=== PATIENT | male | born 1955 | race Caucasian/White ===

== ENCOUNTER → 2020-10-31 11:25 | Outpatient (REF) | payer MEDICARE, SELFPAY | LOC: ANHLAB 11:25 | PROVIDERS: PCP Internal Medicine; Visit Provider Nurse Practitioner | DX: C44.319 Basal cell carcinoma of skin of other parts of face (principal) | CPT/HCPCS: 88305 ==

== ENCOUNTER → 2020-12-11 08:18 | Outpatient (REF) | payer MEDICARE, SELFPAY | LOC: ANHLAB 08:18 | PROVIDERS: PCP Internal Medicine; Visit Provider Nurse Practitioner | DX: D22.39 Melanocytic nevi of other parts of face (principal) | CPT/HCPCS: 88305 ==

== ENCOUNTER → 2021-01-08 08:21 | Outpatient (REF) | payer MEDICARE, SELFPAY | LOC: ANHLAB 08:21 | PROVIDERS: PCP Internal Medicine; Visit Provider Nurse Practitioner | DX: C44.319 Basal cell carcinoma of skin of other parts of face (principal) | CPT/HCPCS: 88305; 88331 ==

== ENCOUNTER 2024-06-30 00:13 | Day surgery (SDC) | payer MEDICARE, SELFPAY ==
[2024-06-17 10:56] VITALS: BMI 37.0
--- NOTE | 2024-06-17 11:15 | PC.NURSE ---
called pt re: pat call for upcoming colonoscopy on june 30, 2024. reinforced pt instructions several times, pt states he understood but asked same questions numerous times. pt states he did have the instruction letter from the office. strongly encouraged pt to look at this and take letter with him when he purchases prep ingredients. pts not available to speak with, pt states she was working. encouraged pt to have go over letter and instructions with him and to call back with any questions. voiced understanding.
--- OUTSIDE RECORDS SUMMARY | 2024-06-30 00:17 | XMS_ITS | Data Portability ---
Author Organization RAMÓN GABBILisa Martines Address [address] [place] [address] Assessment No assessment recorded. Plan of Treatment Reminders Order Date Submit Date Provider Last Modified By Organization Details Last Modified Time Details Appointments ANY 15 2024 03:15P iJm RUSS PA-C Not available Not available Not available Lab CMP, serum or plasma 2024 025 EBONY LABLYNDON, [address] [place] [address], [facility] [address], [place], [address], 03/31/2024 10:13:59 albumin/c reatinine , mass ratio, urine 2024 025 EBONY LABLYNDON, [address] [place] [address], [address], [place], [address], 03/31/2024 10:13:56 CBC w/ auto diff 2024 025 EBONY LABLYNDON, [address] [place] [address], [facility] [address], [place], [address], 03/31/2024 10:14:03 lipid panel, serum 2024 025 EBONY LABLYNDON, [address] [place] [address], [facility] [address], [place], [address], 03/31/2024 10:13:57 TSH, ultra-sen sitive, serum 2024 025 EBONY LABLYNDON, [address] [place] [address], [facility] [address], [place], [address], 03/31/2024 10:14:00 HbA1c (hemoglob in A1c), blood 2024 025 EB[facility]Y [facility], [address], [address], [place], [address], 03/31/2024 10:14:02 Referral gastroent erologist referral 2024 025 EBONY Modi MD, [address] [facility] [address], [place], [address], 04/13/2024 04:17:54 plastic surgeon referral - Please call patient for appointme nt thanks! 2021 022 EBONY Harman MD, [address] [facility] [address], [place], [address], 05/09/2022 14:13:58 urologist referral - Please call patient for appointme nt, thanks! 2021 022 charlotte Martins MD, [address] [facility], [place], [address], 05/23/2022 08:26:24 Procedures None recorded. Surgeries None recorded. Imaging None recorded. Medication Orders amlodipin e 10 mg tablet 2024 025 [email or web address] [facility], [address] [place], [address], 03/30/2024 10:40:02 clonidine HCl 0.1 mg tablet 2024 025 [email or web address] [facility], [address] [place], [address], 03/30/2024 10:40:02 amlodipin e 10 mg tablet 2022 023 EBONY [facility], [address] [place], [address], 02/04/2023 18:02:38 clonidine HCl 0.1 mg tablet 2022 023 EBONY [facility], [address] [place] [address], [address], 02/04/2023 18:02:38 amlodipin e 10 mg tablet 2022 023 EBONY [facility], [address] [place] [address], [address], 07/05/2022 16:44:40 clonidine HCl 0.1 mg tablet 2022 023 EBONY [facility], [address] [place] [address], [address], 07/05/2022 16:44:39 amlodipin e 10 mg tablet 2021 022 EBONY [facility], [address] [place] [address], [address], 01/02/2022 17:02:19 clonidine HCl 0.1 mg tablet 2021 022 EBONY [facility], [address] [place] [address], [address], 01/02/2022 17:02:19 tamsulosi n 0.4 mg capsule 2021 022 [email or web address] [facility], [address] [place] [address], [address], 01/02/2022 16:05:02 Patient TargetsNo targets recorded. Patient Instructions Encounter Date Encounter Id Patient Instructions Last Modified By Organization Details Last Modified Time 09/04/2021 [id number] prostate biopsy: about this test [facility] Not available 09/04/2021 18:44:47 When You Want to Lose Weight: Care Instructions [facility] Not available 09/04/2021 18:44:47 learning about high blood pressure [email or web address] Not available 09/04/2021 18:44:47 benign prostatic hyperplasia: care instructions sieh Not available 09/04/2021 18:44:47 01/02/2022 [id number] A healthy lifestyle: care instructions sieh Not available 01/02/2022 17:13:10 body mass index: care instructions sieh Not available 01/02/2022 17:02:14 learning about healthy weight si Not available 01/02/2022 17:02:14 07/05/2022 [id number] A healthy lifestyle: care instructions si Not available 07/05/2022 16:44:37 learning about high blood pressure [facility] Not available 07/05/2022 16:44:37 02/04/2023 [id number] A healthy lifestyle: care instructions [facility] Not available 02/04/2023 18:02:36 03/30/2024 [id number] A healthy lifestyle: care instructions [email or web address] Not available 03/30/2024 10:39:49 learning about high blood pressure [email or web address] Not available 03/30/2024 10:39:49 Reason for Referral Urologist Referral for Prost ate specific antigen above reference range Please call patient for appointment, thanks! Referring Physician: Chris Corral, Internal Medicine, Encounter Date: 09/04/2021 Plastic Surgeon Referral for History of malignant neoplasm of skin Please call patient for appointment thanks! Referring Physician: Chris Corral, Internal Medicine, Encounter Date: 01/02/2022 Operator Control Room Referral for Screening for malignant neoplasm of colon colonscopy Referring Physician: Fransico Russ, Family Medicine, Encounter Date: 03/30/2024 Results Created Date Observation Date Name Description Value Unit Range Abnormal Flag Note LastModifiedBy Organization Detail LastModifiedTime 08/22/19 22 08/22/2021 PROST ATE-S PECIF IC AG prostate specific Ag 11.4 NG/mL 0.0-4. 0 above high normal Tete ECLIA metho dolog y. Accor ding to the Ameri can [employer]o g[employer] iatio n, Serum PSA shoul d decre ase and remai n at undet ectab le level s after radic al prost atect debra. The AUA defin es bioch emica l recur rence as an initi al PSA value 0.2 ng/mL or great er follo wed by a subse quent confi rmato ry PSA value 0.2 ng/mL or great er. Value s obtai nallely with diffe rent assay metho ds or kits canno t be used inter stein eably . Resul ts canno t be inter prete d as absol chul[place]ick evide nce of the prese nce or absen ce [facility]. Not Available [facility] ([facility]) [address] [place], [address], 08/22/2021 08:15:19 03/30/19 25 03/31/2024 ALBUM IN/CR EATIN INE RATIO ,URIN E creatinine, urine 59.1 mg/dL notest ab. Not Available [facility] ([facility]) [address] [place], [address], 03/31/2024 10:13:56 03/30/19 25 03/31/2024 ALBUM IN/CR EATIN INE RATIO ,URIN E albumin, urine 19.2 ug/mL notest ab. Not Available [facility] ([facility]) [address] [place], [address], 03/31/2024 10:13:56 03/30/19 25 03/31/2024 ALBUM IN/CR EATIN INE RATIO ,URIN E alb/creat ratio 32 mg/g_ creat 0-29 above high normal Nicolasa l: 0 - 29 Moder ately incre ased: 30 - 300 Sever mari incre ased: >300 Not Available [facility] ([facility]) [address] [place], [address], 03/31/2024 10:13:56 03/30/19 25 03/31/2024 LIPID PANEL cholesterol, total 144 mg/dL 100-19 9 Not Available [facility] ([facility]) [address] [place], [address], 03/31/2024 10:13:57 03/30/19 25 03/31/2024 LIPID PANEL triglyceride s 100 mg/dL 0-149 Not Available [facility] ([facility]) [address] [place], [address], 03/31/2024 10:13:57 03/30/19 25 03/31/2024 LIPID PANEL HDL cholesterol 49 mg/dL >39 Not Available [facility] ([facility]) [address] [place], [address], 03/31/2024 10:13:57 03/30/19 25 03/31/2024 LIPID PANEL VLDL cholesterol jason 19 mg/dL 5-40 Not Available [facility] ([facility]) [address] [place], [address], 03/31/2024 10:13:57 03/30/19 25 03/31/2024 LIPID PANEL LDL chol calc ([facility]) 76 mg/dL 0-99 Not Available [facility] ([facility]) [address] [place], [address], 03/31/2024 10:13:57 03/30/19 25 03/31/2024 COMP. METAB OLIC PANEL (14) glucose 98 mg/dL 70-99 Not Available [facility] ([facility]) [address] [place], [address], 03/31/2024 10:13:59 03/30/19 25 03/31/2024 COMP. METAB OLIC PANEL (14) BUN 14 mg/dL 8-27 Not Available [facility] ([facility]) [address] [place], [address], 03/31/2024 10:13:59 03/30/19 25 03/31/2024 COMP. METAB OLIC PANEL (14) creatinine 0.84 mg/dL 0.76-1 .27 Not Available [facility] ([facility]) [address] [facility], [place], [address], 03/31/2024 10:13:59 03/30/19 25 03/31/2024 COMP. METAB OLIC PANEL (14) eGFR 95 mL/mi n/1.7 3 >59 Not Available [facility] ([facility]) [address] [facility], [place], [address], 03/31/2024 10:13:59 03/30/19 25 03/31/2024 COMP. METAB OLIC PANEL (14) BUN/creatini ne ratio 17 10-24 Not Available [facility] ([facility]) [address] [facility], [place], [address], 03/31/2024 10:13:59 03/30/19 25 03/31/2024 COMP. METAB OLIC PANEL (14) sodium 143 mmol/ L 134-14 4 Not Available [facility] ([facility]) [address] [facility], [place], [address], 03/31/2024 10:13:59 03/30/19 25 03/31/2024 COMP. METAB OLIC PANEL (14) potassium 4.0 mmol/ L 3.5-5. 2 Not Available [facility] ([facility]) [address] [facility], [place], [address], 03/31/2024 10:13:59 03/30/19 25 03/31/2024 COMP. METAB OLIC PANEL (14) chloride 105 mmol/ L 96-106 Not Available [facility] ([facility]) [address] [facility], [place], [address], 03/31/2024 10:13:59 03/30/19 25 03/31/2024 COMP. METAB OLIC PANEL (14) carbon dioxide, total 22 mmol/ L 20-29 Not Available [facility] ([facility]) [address] [facility], [place], [address], 03/31/2024 10:13:59 03/30/19 25 03/31/2024 COMP. METAB OLIC PANEL (14) calcium 9.5 mg/dL 8.6-10 .2 Not Available [facility] ([facility]) [address] [facility], [place], [address], 03/31/2024 10:13:59 03/30/19 25 03/31/2024 COMP. METAB OLIC PANEL (14) protein, total 6.9 g/dL 6.0-8. 5 Not Available [facility] ([facility]) [address] [facility], [place], [address], 03/31/2024 10:13:59 03/30/19 25 03/31/2024 COMP. METAB OLIC PANEL (14) albumin 4.4 g/dL 3.9-4. 9 Not Available [facility] ([facility]) [address] [place], [address], 03/31/2024 10:13:59 03/30/19 25 03/31/2024 COMP. METAB OLIC PANEL (14) globulin, total 2.5 g/dL 1.5-4. 5 Not Available [facility] ([facility]) [address] [place], [address], 03/31/2024 10:13:59 03/30/19 25 03/31/2024 COMP. METAB OLIC PANEL (14) bilirubin, total 0.5 mg/dL 0.0-1. 2 Not Available [facility] ([facility]) [address] [place], [address], 03/31/2024 10:13:59 03/30/19 25 03/31/2024 COMP. METAB OLIC PANEL (14) alkaline phosphatase 72 IU/L 44-121 Not Available [facility] ([facility]) [address] [facility] [place], [address], 03/31/2024 10:13:59 03/30/19 25 03/31/2024 COMP. METAB OLIC PANEL (14) AST (SGOT) 21 IU/L 0-40 Not Available [facility] ([facility]) [address] [place], [address], 03/31/2024 10:13:59 03/30/19 25 03/31/2024 COMP. METAB OLIC PANEL (14) ALT (SGPT) 29 IU/L 0-44 Not Available [facility] ([facility]) [address] [place], [address], 03/31/2024 10:13:59 03/30/19 25 03/31/2024 TSH RFX ON ABNOR MAL TO FREE T4 TSH 1.950 uIU/m L 0.450- 4.500 Not Available [facility] ([facility]) [address] [place], [address], 03/31/2024 10:14:00 03/30/19 25 03/31/2024 HEMOG LOBIN A1C hemoglobin A1C 6.9 % 4.8-5. 6 above high normal Predi abete s: 5.7 - 6.4 Diabe anthony: >6.4 Glyce luis contr ol for adult s with diabe anthony: <7.0 Not Available [facility] ([facility]) [address] [place], [address], 03/31/2024 10:14:02 03/30/19 25 03/30/2024 CBC WITH DIFFE RENTI AL/PL ATELE T WBC 9.9 x10e3 /uL 3.4-10 .8 Not Available [facility] ([facility]) [address] [place], [address], 03/31/2024 10:14:03 03/30/19 25 03/30/2024 CBC WITH DIFFE RENTI AL/PL ATELE T RBC 5.53 x10e6 /uL 4.14-5 .80 Not Available [facility] ([facility]) [address] [place], [address], 03/31/2024 10:14:03 03/30/19 25 03/30/2024 CBC WITH DIFFE RENTI AL/PL ATELE T hemoglobin 15.2 g/dL 13.0-1 7.7 Not Available [facility] ([facility]) [address] [place], [address], 03/31/2024 10:14:03 03/30/19 25 03/30/2024 CBC WITH DIFFE RENTI AL/PL ATELE T hematocrit 46.1 % 37.5-5 1.0 Not Available [facility] ([facility]) [address] [place], [address], 03/31/2024 10:14:03 03/30/19 25 03/30/2024 CBC WITH DIFFE RENTI AL/PL ATELE T MCV 83 fL 79-97 Not Available [facility] ([facility]) [address] [place], [address], 03/31/2024 10:14:03 03/30/19 25 03/30/2024 CBC WITH DIFFE RENTI AL/PL ATELE T MCH 27.5 pg 26.6-3 3.0 Not Available [facility] ([facility]) [address] [place], [address], 03/31/2024 10:14:03 03/30/19 25 03/30/2024 CBC WITH DIFFE RENTI AL/PL ATELE T MCHC 33.0 g/dL 31.5-3 5.7 Not Available [facility] ([facility]) [address] [place], [address], 03/31/2024 10:14:03 03/30/19 25 03/30/2024 CBC WITH DIFFE RENTI AL/PL ATELE T RDW 14.7 % 11.6-1 5.4 Not Available [facility] ([facility]) [address] [place], [address], 03/31/2024 10:14:03 03/30/19 25 03/30/2024 CBC WITH DIFFE RENTI AL/PL ATELE T platelets 265 x10e3 /uL 150-45 0 Not Available [facility] ([facility]) [address] [facility], [place], [address], 03/31/2024 10:14:03 03/30/19 25 03/30/2024 CBC WITH DIFFE RENTI AL/PL ATELE T neutrophils 64 % notest ab. Not Available [facility] ([facility]) [address] [facility], [place], [address], 03/31/2024 10:14:03 03/30/19 25 03/30/2024 CBC WITH DIFFE RENTI AL/PL ATELE T lymphs 19 % notest ab. Not Available [facility] ([facility]) [address] [facility], [place], [address], 03/31/2024 10:14:03 03/30/19 25 03/30/2024 CBC WITH DIFFE RENTI AL/PL ATELE T monocytes 10 % notest ab. Not Available [facility] ([facility]) [address] [facility], [place], [address], 03/31/2024 10:14:03 03/30/19 25 03/30/2024 CBC WITH DIFFE RENTI AL/PL ATELE T eos 5 % notest ab. Not Available [facility] ([facility]) [address] [facility], [place], [address], 03/31/2024 10:14:03 03/30/19 25 03/30/2024 CBC WITH DIFFE RENTI AL/PL ATELE T basos 1 % notest ab. Not Available [facility] ([facility]) [address] [facility], [place], [address], 03/31/2024 10:14:03 03/30/19 25 03/30/2024 CBC WITH DIFFE RENTI AL/PL ATELE T neutrophils (absolute) 6.5 x10e3 /uL 1.4-7. 0 Not Available [facility] ([facility]) [address] [place], [address], 03/31/2024 10:14:03 03/30/19 25 03/30/2024 CBC WITH DIFFE RENTI AL/PL ATELE T lymphs (absolute) 1.8 x10e3 /uL 0.7-3. 1 Not Available [facility] ([facility]) [address] [place], [address], 03/31/2024 10:14:03 03/30/19 25 03/30/2024 CBC WITH DIFFE RENTI AL/PL ATELE T monocytes(ab solute) 0.9 x10e3 /uL 0.1-0. 9 Not Available [facility] ([facility]) [address] [place], [address], 03/31/2024 10:14:03 03/30/19 25 03/30/2024 CBC WITH DIFFE RENTI AL/PL ATELE T eos (absolute) 0.5 x10e3 /uL 0.0-0. 4 above high normal Not Available [facility] ([facility]) [address] [place], [address], 03/31/2024 10:14:03 03/30/19 25 03/30/2024 CBC WITH DIFFE RENTI AL/PL ATELE T baso (absolute) 0.1 x10e3 /uL 0.0-0. 2 Not Available [facility] ([facility]) [address] [place], [address], 03/31/2024 10:14:03 03/30/19 25 03/30/2024 CBC WITH DIFFE RENTI AL/PL ATELE T immature granulocytes 1 % notest ab. Not Available [facility] ([facility]) [address] [place], [address], 03/31/2024 10:14:03 03/30/19 25 03/30/2024 CBC WITH DIFFE ISHATI AL/PL ATELE T immature grans (abs) 0.1 x10e3 /uL 0.0-0. 1 Not Available [facility] ([facility]) [address] [facility], [place], [address], 03/31/2024 10:14:03 Result Notes None recorded. Problems Name Problem SNOMED Code Status Onset Date Resolution Date Notes Provider Name and Address Organization Details Recorded Time Body mass index 30+ - obesity 259070863 Active 2017 Not Available [facility] 3 14:46:02 Pain in left foot 0652442092381 07 Active 2021 Not Available [facility] 3 14:46:02 Essential hypertensi on 17141895 Active FRANSICO RUSS PA-C Attn: Accounting ,[address] [facility], [place], [address] , [facility] 5 10:16:24 Obesity 216049746 Active Not Available [facility] 3 14:46:02 Seasonal allergy 947628691 Active Not Available [facility] 3 14:46:02 Problem Notes None recorded. Medical Equipment None Reported. Allergies No known drug allergies Medications Name Sig Start Date Stop Date Status Note LastModified by Organization Details LastModified Time Prescriptio n - Change 01/24 completed Not Available Not Available Not Available clonidine HCl 0.1 mg tablet TAKE 1 TABLET BY MOUTH TWICE A DAY active Not Available Not Available No t Available clindamycin HCl 300 mg capsule TAKE 2 CAPSULES BY MOUTH NOW THEN TAKE 1 CAPSULE EVERY 6 HOURS UNTIL FINISHED 02/04 completed Not Available Not Available Not Available naltrexone 50 mg tablet Take 1 tablet every day by oral route as directed for 30 days. 12/07 completed Not Available Not Available Not Available lisinopril 20 mg tablet TAKE 2 TABLETS BY MOUTH EVERY DAY 02/14 completed Not Available Not Available Not Available Wellbutrin SR 150 mg tablet, 12 hr sustained-r elease Take 1 tablet twice a day by oral route as directed for 30 days. 12/07 completed Not Available Not Available Not Available triamcinolo ne acetonide 0.1 % topical cream APPLY A THIN LAYER TO THE AFFECTED AREA(S) BY TOPICAL ROUTE 2 TIMES PER DAY 09/04 completed Not Available Not Available Not Available tamsulosin 0.4 mg capsule TAKE 1 CAPSULE BY MOUTH EVERY DAY AT BEDTIME FOR 30 DAYS 01/02 completed Not Available Not Available Not Available amlodipine 10 mg tablet TAKE 1 TABLET BY MOUTH EVERY DAY FOR BLOOD PRESSURE active Not Available Not Available No t Available lisinopril 40 mg tablet Take 1 tablet every day by oral route as directed for 30 days. 01/28 completed Not Available Not Available Not Available fluticasone propionate 50 mcg/actuati on nasal spray,suspe nsion ADMINISTE R 1 OR 2 SPRAYS TO EACH NOSTRIL DAILY FOR CHRONIC SEASONAL ALLERGIC RHINITIS active Not Available Not Available No t Available Calcium with Vitamin D3 600 mg (carbonate) -10 mcg (400 unit) capsule Take 1 capsule twice a day by oral route as directed for 30 days. 01/28 completed Not Available Not Available Not Available Vitals Date Recorded Body height Body mass index (BMI) Body weight Body temperature Oxygen saturation Oxygen saturation in Arterial blood by Pulse oximetry Heart rate Systolic blood pressure Diastolic blood pressure Provider Name and Address Organization Details Last Updated DateTime 2 167.01 cm 36.7 kg/m2 472558. 16 g 98.1 [degF] 98 % 98 % 75 /min 166 mm[Hg] 94 mm[Hg] Solis Martino [place] [facility] 2 18:07:16 Date Recorded Body height Body mass index (BMI) Body weight Heart rate Oxygen saturation Oxygen saturation in Arterial blood by Pulse oximetry Systolic blood pressure Diastolic blood pressure Provider Name and Address Organization Details Last Updated DateTime 2 167.01 cm 35.8 kg/m2 03715.3 2 g 75 /min 98 % 98 % 148 mm[Hg] 82 mm[Hg] Radha Lopez MA [place] - [facility] 2 16:08:21 Date Recorded Body height Body mass index (BMI) Body weight Oxygen saturation Oxygen saturation in Arterial blood by Pulse oximetry Heart rate Systolic blood pressure Diastolic blood pressure Provider Name and Address Organization Details Last Updated DateTime 3 167.01 cm 38 kg/m2 941780. 9 g 94 % 94 % 80 /min 169 mm[Hg] 93 mm[Hg] Dahlia Castillo MA [facility] 3 16:26:40 Date Recorded Body height Body mass index (BMI) Body weight Heart rate Oxygen saturation Oxygen saturation in Arterial blood by Pulse oximetry Systolic blood pressure Diastolic blood pressure Provider Name and Address Organization Details Last Updated DateTime 3 167.01 cm 37.9 kg/m2 244373. 02 g 105 /min 97 % 97 % 142 mm[Hg] 80 mm[Hg] Becki Cobb MA [facility] 3 17:15:35 Date Recorded Body height Body mass index (BMI) Body weight Oxygen saturation Oxygen saturation in Arterial blood by Pulse oximetry Heart rate Systolic blood pressure Diastolic blood pressure Provider Name and Address Organization Details Last Updated DateTime 5 167.01 cm 39.8 kg/m2 516593. 69 g 97 % 97 % 78 /min 158 mm[Hg] 88 mm[Hg] Dahlia Castillo MA [facility] 5 09:59:54 Date Recorded Systolic blood pressure Diastolic blood pressure Provider Name and Address Organization Details Last Updated DateTime 03/30/2024 140 mm[Hg] 90 mm[Hg] FRANSICO RUSS PA-C Attn: Accounting,[address] [place], [address], [facility] 03/30/2024 10:28:16 Social History Question Answer Notes LastModified by Organizat ion Details LastModified Time Tobacco Smoking Status Never Smoker Alida Escalona MA null, [facility] 06/11/2019 10:13:05 What Was The Date Of Your Most Recent Tobacco Screening? 03/30/2024 [email or web address] Information not available 03/30/2024 How Much Tobacco Do You Smoke? No Information not available 06/11/2019 Has Tobacco Cessation Counseling Been Provided? Yes [email or web address] Information not available 01/02/2022 On What Date Was Tobacco Cessation Counseling Provided? 02/04/2023 [email or web address] Information not available 02/04/2023 Sex: Unknown Functional Status Question Answer Note LastModified by Organizat ion Details LastModified Time Do you or have you ever used smokeless tobacco? Never used smokeless tobacco Information not available 06/11/2019 Do you or have you ever used e-cigarettes or vape? Never used electronic cigarettes Information not available 06/11/2019 Mental Status None recorded. Family History Relationship Description Onset Age of this Age Resolved Age Notes LastModified by Organization Details LastModified Time Father Heart disease [email or web address] Not available 2019 10:12:58 Medical History Condition Response Coronary Artery Disease N Atrial Fibrillation N High Blood Pressure Y Depression N COPD N Blood Clots N Anxiety Disorder N Muscle, Joint, or Bone Problems N Acid Reflux (GERD) Y Cancer N Stroke N High Cholesterol N Liver Disease N Headaches Y Kidney or Bladder Problems N Thyroid Problems N GI Problems N Skin Problems N Anemia N Heart Attack ([place]) N Diabetes N Seizures/Epilepsy N Asthma N Allergies Y Hepatitis N Osteoporosis N Heart Failure N Immunizations Vaccine Type Date Status Note Provider Nam e and Address Organization Details Recorded Time tetanus toxoid, unspecified formulation 8 completed Not Available [facility] 06/22/2022 14:46:02 tetanus toxoid, unspecified formulation 2 completed Dahlia Castillo MA [facility] 03/30/2024 09:53:16 Past Encounters Encounter ID Performer Location Encounter Start Date Encounter Closed Date Diagnosis/Indication Diagnosis SNOMED-CT Code Diagnosis ICD10 Code Diagnosis Note [id number] MD Ernesto Gonzales (Adult Med) [address] [place] [id number] 10/17/2014 16:06:52 10/17/2014 16:54:00 Essential hypertension 36737339 Obesity 211436304 Seasonal allergy 646263237 Adult heal th examination 554205009 [id number] MD Ernesto Gonzales (Adult Med) [address] [place] [id number] 01/26/2016 11:56:26 01/26/2016 13:49:57 Essential hypertension 86170534 I10 Seasonal allergy 0203686 04 J30.2 Obesity 791375760 E66.9 [id number] MD Ernesto Gonzales [facility] (Adult Med) [address] [place] [id number] 07/26/2016 14:57:30 07/26/2016 18:07:00 Seasonal allergy 231217136 J30.2 Obesity 085490643 E66.9 Diet, exercise and lose weight he agreed. Essential hypertension 76037532 I10 Low salt diet. Screening for malignant neoplasm of colon 448644643 Z12.11 Screening for malignant neoplasm of prostate 188851267 Z12.5 [id number] Chris Corral MD [facility] (Adult Med) [address] [place] [id number] 01/24/2017 16:07:22 01/24/2017 17:06:08 Essential hypertension 01481757 I10 Low salt diet. Obesity 707296212 E66.9 Diet, exercise and lose weight. Screening for malignant neoplasm of colon 223118107 Z12.11 Patient refuses. [id number] Chris Corral MD [facility] (Adult Med) [address] [place] [id number] 02/14/2017 16:22:33 02/18/2017 09:43:30 Essential hypertension [id number] I10 Low salt diet. Well controlled . will stay on clonidine and lisinopril as prescribed . He has enough refills. Prostate s pecific antigen above reference range [id number] R97.20 Will have cystoscopy evaluation in the near future by urologist. Screening for malignant neoplasm of colon [id number] Z12.11 [id number]|2024-06-30 10:04:00|2024-06-30 10:04:00|P.HP_ITS|TAGLEF|Health Information Management|[id number]|"H&P: HPI History of Present Illness Date/Time: 06/30/24 10:04 Chief Complaint: History of colon polyps Narrative: The patient has a history of colonic polyps, the last colonoscopy was approximately 5 years ago. Review of Systems Review of Systems: All systems reviewed & are unremarkable except as noted in HPI and below PMFSH Past Medical History Medical History Basal cell carcinoma (BCC) of right faith region Skin neoplasm BMI 33.0-33.9,adult Surgical History Surgical History History of removal of cyst ~15 years ago - behind ear Family History Family History Father Alcoholism Hypertension Heart disease Mother Diabetes mellitus Hypertension Cerebrovascular accident Sibling Asthma Hypertension Social History Social History Social History: caffeine 1-2 cups coffee daily Smoking status: Never smoker Alcohol intake: former Substance use: never Substance use type: does not use Do You Feel Safe in your Home?: No Lack of Transportation: No Lack of Food: Never True Current Housing: I Have Housing Concerned About Future Housing: No Difficulty Paying Gas/Electric Bills: No Difficulty Paying for Meds: No Currently Unemployed: No Education: Decline to Answer Difficulty w/ Childcare or Family Care: No Living arrangements: with family Occupation/Education: retired Gender identity (if verbalized by the patient): Male Sexual Orientation (if Verbalized by the Patient): Straight or Heterosexual Spiritual care concerns: No Agree to blood products: Yes Meds Home Medications and Allergies Home Medications Medication Instructions Recorded Confirmed Type amlodipine 10 mg tablet 10 mg PO DAILY 10/31/20 06/30/24 History clonidine HCl 0.1 mg tablet 0.1 mg PO BID 10/31/20 06/30/24 History fluticasone propionate 50 2 spray intranasal DAILY chronic 09/16/23 06/17/24 Rx mcg/actuation nasal seasonal allergic rhinitis #18 mL spray,suspension (Flonase Allergy Relief) Allergies Allergy/AdvReac Type Severity Reaction Status Date / Time Penicillins Allergy Mild childhood Verified 06/30/24 08:56 reaction Vital Signs Vital Signs - 24 hr 06/30/24 08:58 Temperature 97.1 F L Pulse Rate 71 Respiratory Rate 18 Blood Pressure 160/77 H Pulse Oximetry 98 Oxygen Delivery Room Air Exam Const: General: cooperative and healthy appearing Resp: Effort & Inspection: normal respiratory effort and able to speak in complete sentences Auscultation: clear to auscultation bilaterally Cardio: Rate: regular rate Rhythm: regular rhythm GI: Inspection: normal to inspection GI Palp: No No hepatosplenomegaly present Auscultation: normal bowel sounds Rectal Exam: deferred Skin: General skin exam: normal color Psych: Appearance: grossly normal Mental Status: mental status grossly normal Assessment and Plan Assessment and plan (1) History of colonic polyps: Code(s): Z86.0100 - Personal history of colon polyps, unspecified Status: Acute Assessment and Plan: The patient is deemed a good candidate for the procedure. Consent signed. Will proceed. "
--- OUTSIDE RECORDS SUMMARY | 2024-06-30 00:17 | XMS_ITS | Data Portability ---
Author Organization [facility], Main Office Address [address] [place] [address] Assessment No assessment recorded. Plan of Treatment Reminders Order Date Submit Date Provider Last Modified By Organization Details Last Modified Time Details Appointments None recorde d. Lab PSA, total, serum or plasma 2022 023 [facility], [address] [place], [address], 3 10:11:13 Referral None recorde d. Procedures None recorde d. Surgeries None recorde d. Imaging None recorde d. Medication Orders None recorde d. Patient TargetsNo targets recorded. Patient InstructionsNo instructions recorded. Reason for Referral None Reported. Results Created Date Observation Date Name Description Value Unit Range Abnormal Flag Note LastModifiedBy Organization Detail LastModifiedTime 09/28/19 22 09/27/2021 , bladd er No observ ation record ed. [id number] [facility] [place] [address], [address], [place], [address], 04/17/2022 08:50:25 Result Notes None recorded. Problems Name Problem SNOMED Code Status Onset Date Resolution Date Notes Provider Name and Address Organization Details Recorded Time History of multiple allergies 330882193 Active 2017 Not Available [facility] 3 08:46:26 Ankle joint effusion 935421791 Active 2018 Not Available [facility] 3 08:46:26 Ankle pain 624331330 Active 2017 Not Available [facility] 3 08:46:26 Hypertensive disorder 15165807 Active 2017 Not Available [facility] 3 08:46:26 Obesity 192458437 Active 2017 Not Available [facility] 3 08:46:26 Prostate specific antigen above reference range 205744320 Active 2022 ONIEL Tap[place], [place] [email or web address] 3 09:22:47 Problem Notes None recorded. Procedures Surgical History None recorded. Imaging Results Imaging Date Name Status LastModified by Organiz ation Details LastModified Time 09/27/2021 US, bladder completed [id number] [facility] [address], [address], [place], [address], 04/17/2022 08:50:25 Procedure Notes None recorded. Medical Equipment None Reported. Allergies Allergen ID Allergen Name Allergen Category Reaction Reaction Severity Criticality Documentation Date Start Date Code Code System Note Provider Name and Address Organization Details Recorded Time Product containin g penicilli n (product) medicatio n Not available Not available Not available 04/17/2022 [id number] SNOMED Not Available [facility] 3 08:50:16 Medications Name Sig Start Date Stop Date Status Note LastModified by Organization Details LastModified Time clonidine HCl 0.1 mg tablet TAKE 1 TABLET BY MOUTH TWICE A DAY active Not Available Not Available No t Available lisinopri l 20 mg tablet 03/13 completed Not Available Not Available Not Available tramadol 50 mg tablet Take 1 tablet twice a day by oral route as needed for 15 days. active Not Available Not Available No t Available triamcino lone acetonide 0.1 % topical cream APPLY THIN COAT TO AFFECTED AREA TWICE A DAY 09/27 completed Not Available Not Available Not Available tamsulosi n 0.4 mg capsule TAKE 1 CAPSULE BY MOUTH EVERY DAY AT BEDTIME FOR 30 DAYS 10/25 completed Not Available Not Available Not Available amlodipin e 10 mg tablet TAKE 1 TABLET BY MOUTH EVERY DAY IN THE MORNING active Not Available Not Available No t Available Cipro 500 mg tablet Take 1 tablet every 12 hours by oral route as directed for 1 day. 10/25 completed Not Available Not Available Not Available hydrochlo rothiazid e 12.5 mg capsule Take 1 capsule every day by oral route for 90 days. active Not Available Not Available No t Available Xylocaine 20 mg/mL (2 %) injection solution Take 10 mL by injectio n route. 10/25 completed Patient tolerate d well with no complain ts Not Available Not Available Not Available Vitamin D2 1,250 mcg (50,000 unit) capsule Take 1 capsule every week by oral route for 60 days. 09/27 completed Not Available Not Available Not Available lisinopri l 40 mg tablet active Not Available Not Available Not Available fluticaso ne propionat e 50 mcg/actua tion nasal spray,carlos pension prn active Not Available Not Available Not Available loratadin e 10 mg tablet Take 1 tablet every day by oral route as needed for 30 days. 04/21 completed Not Available Not Available Not Available Calcium 600 + D(3) 600 mg-10 mcg (400 unit) tablet qd active Not Available Not Available Not Available Suprep Bowel Prep Kit 17.5 gram-3.13 gram-1.6 gram oral solution 03/18 completed Not Available Not Available Not Available Vitals Date Recorded Body mass index (BMI) Body height Heart rate Body weight Systolic blood pressure Diastolic blood pressure Provider Name and Address Organization Details Last Updated DateTime 1 34.1 kg/m2 165.1 cm 74 /min 65622.4 4 g 140 mm[Hg] 100 mm[Hg] Not Available [facility] 3 08:44:27 Date Recorded Body mass index (BMI) Body height Oxygen saturation Oxygen saturation in Arterial blood by Pulse oximetry Heart rate Body temperature Body weight Systolic blood pressure Diastolic blood pressure Provider Name and Address Organization Details Last Updated DateTime 2 34.5 kg/m2 167.64 cm 97 % 97 % 76 /min 98.4 [degF] 06144.7 7 g 164 mm[Hg] 102 mm[Hg] Not Available [facility] 3 08:44:27 Date Recorded Body mass index (BMI) Body height Oxygen saturation Oxygen saturation in Arterial blood by Pulse oximetry Heart rate Body temperature Body weight Provider Name and Address Organization Details Last Updated DateTime 2 34.5 kg/m2 167.64 cm 97 % 97 % 82 /min 98.6 [degF] 22062.7 7 g Not Available [facility] 3 08:44:29 Date Recorded Body mass index (BMI) Body height Oxygen saturation Oxygen saturation in Arterial blood by Pulse oximetry Body temperature Body weight Provider Name and Address Organization Details Last Updated DateTime 2 34.5 kg/m2 167.64 cm 99 % 99 % 98.4 [degF] 90881.7 7 g Not Available [facility] 3 08:44:29 Date Recorded Body height Provider Name an d Address Organization Details Last Updated DateTime 04/25/2022 167.64 cm Marleny Claudio MA [facility] [employer] 04/25/2022 09:09:41 Date Recorded Body temperature Oxygen saturation Oxygen saturation in Arterial blood by Pulse oximetry Heart rate Provider Name and Address Organization Details Last Updated DateTime 04/25/2022 98 [degF] 97 % 97 % 80 /min KHARI Santoro [facility] [employer] [facility] 3 09:12:48 Social History None recorded. Functional Status None recorded. Mental Status None recorded. Family History Nothing Reported Notes:hypertension, heart di sease Medical History Condition Response HYPERTENSION Y Immunizations Vaccine Type Date Status Note Provider Nam e and Address Organization Details Recorded Time tetanus toxoid, unspecified formulation 2 completed Not Available [facility] 04/17/2022 08:50:08 Past Encounters Encounter ID Performer Location Encounter Start Date Encounter Closed Date Diagnosis/Indication Diagnosis SNOMED-CT Code Diagnosis ICD10 Code Diagnosis Note [id number] [facility] [place] ic_[facility] _[facility]_M IGRATION_ DEFAULT_1 _1 , 09/15/2020 00:00:00 09/15/2020 11:03:28 [id number] MD TIFFANY Amezcua [facility] [address] [place] [address] 09/27/2021 00:00:00 09/27/2021 10:34:42 [id number] MD TIFFANY Amezcua [address] [address] 10/18/2021 00:00:00 10/18/2021 09:55:55 [id number] Rupesh Foy MD [facility]Naif[facility] [address] [facility] [address] [place] [address] 10/25/2021 00:00:00 10/25/2021 11:49:49 [id number] MD AINSLEY A[facility]zc[facility] [place] [address] [facility] [place] [address] 04/25/2022 08:44:25 04/25/2022 09:26:07 Prostate specific antigen above reference range [id number] R97.20 need psa6 mo follow up with PSA Health Concerns Section Related Observation LastModified by Organization Detai ls LastModified Time None Recorded Concern Status LastModified by Organization Details LastModified Time None Recorded Advance Directives Directive None Recorded Payers Encounter Date Sequence Insurance Name Policy Number Policy Marroquin Covered Member ID Marroquin Member ID Guarantor Name 04/25/2022 1 [facility] (MEDICARE REPLACEMENT/A DVANTAGE - HMO) [id number] Dave Lehman [id number] Dave Lehman Notes Date Note Type Note Provider Name and Address Organization Details Recorded Time 04/25/2022 text/html Patient with elevated PSA and acinar proliferation. Did not get PSA done yet. Complains of nocturia. Rupesh Foy MD [address], [facility] [address], [place], [address], [facility] [place] [employer] 04/25/2022 09:27:27
--- OUTSIDE RECORDS SUMMARY | 2024-06-30 00:18 | XMS_ITS | CONTINUITY OF CARE DOCUMENT ---
Author Name jered lawton Address Unknown Organization [facility] Address [address] [place] [address] Phone [phone] Care Team Providers Care Payroll Benefits Administrator Name Role Phone jered lawton Unavailable Unavailable INSURANCE PROVIDERS Payer name Policy type / Coverage type Willis red democrat [employer] [facility] [facility] Medicaid 1 [id number]
--- NOTE | 2024-06-30 08:57 | P.PNAN_ITS ---
Anes - Initial Pre Proc Eval Procedure: Operation Date: 06/30/24 10:00 Proposed Procedures p Screening Colonoscopy - Ba Cosme MD Date/Time: 06/30/24 08:57 Surgeon: Ba Cosme MD Pre Op Diagnosis: Screening Patient Data Age: 68 Gender: M Height: 1.68 m Weight: 104.3 kg Allergies Allergy/AdvReac Type Severity Reaction Status Date / Time Penicillins Allergy Mild childhood Verified 06/30/24 08:56 reaction Home Medications Medication Instructions Recorded Confirmed Type amlodipine 10 mg tablet 10 mg PO DAILY 10/31/20 06/17/24 History clonidine HCl 0.1 mg tablet 0.1 mg PO BID 10/31/20 06/17/24 History fluticasone propionate 50 2 spray intranasal DAILY chronic 09/16/23 06/17/24 Rx mcg/actuation nasal seasonal allergic rhinitis #18 mL spray,suspension (Flonase Allergy Relief) Patient hx anesthesia problems: none Family hx anesthesia problems: none Results Review: All pre-operative results and documents have been reviewed as part of the pre- operative evaluation. [facility] Past Medical History Medical History Basal cell carcinoma (BCC) of right yarsani region Skin neoplasm BMI 33.0-33.9,adult Surgical History Surgical History History of removal of cyst ~15 years ago - behind ear Family History Family History Father Alcoholism Hypertension Heart disease Mother Diabetes mellitus Hypertension Cerebrovascular accident Sibling Asthma Hypertension Social History Social History Social History: caffeine 1-2 cups coffee daily Smoking status: Never smoker Alcohol intake: former Substance use: never Substance use type: does not use Do You Feel Safe in your Home?: No Lack of Transportation: No Lack of Food: Never True Current Housing: I Have Housing Concerned About Future Housing: No Difficulty Paying Gas/Electric Bills: No Difficulty Paying for Meds: No Currently Unemployed: No Education: Decline to Answer Difficulty w/ Childcare or Family Care: No Living arrangements: with family Occupation/Education: retired Gender identity (if verbalized by the patient): Male Sexual Orientation (if Verbalized by the Patient): Straight or Heterosexual Spiritual care concerns: No Agree to blood products: Yes Anes - Eval Final PreProcedure Day of Procedure 06/30/24 08:57 Patient weight: obese Heart: regular rate and rhythm Lungs: clear to auscultation Airway: Mallampati scale class II Neurological: alert and oriented Last oral intake: >/= 8 hours ASA classification: II Emergent: no Anesthetic plan: proceed Anesthesia type and monitoring: general GIVS and standard monitoring Results Review: All pre-operative results and documents have been reviewed as part of the pre- operative evaluation. Informed Consent: The patient's anesthetic plan and its attendant risks and benefits were discussed with the patient/family/POA. Questions were solicited and answers provided to the satisfaction of the patient/family/POA.
[2024-06-30 08:58] VITALS: BP 160/77; PULSE 71; RESP 18; TEMP 36.2; O2SAT 98
[2024-06-30] MEDS: LACTATED RINGERS 1,000 ML 150 ML IV CONT (09:10)
--- NOTE | 2024-06-30 10:04 | PM.IMHP ---
H&P: HPI History of Present Illness Date/Time: 06/30/24 10:04 Chief Complaint: History of colon polyps Narrative: The patient has a history of colonic polyps, the last colonoscopy was approximately 5 years ago. Review of Systems Review of Systems: All systems reviewed & are unremarkable except as noted in HPI and below PMFSH Past Medical History Medical History Basal cell carcinoma (BCC) of right jainism region Skin neoplasm BMI 33.0-33.9,adult Surgical History Surgical History History of removal of cyst ~15 years ago - behind ear Family History Family History Father Alcoholism Hypertension Heart disease Mother Diabetes mellitus Hypertension Cerebrovascular accident Sibling Asthma Hypertension Social History Social History Social History: caffeine 1-2 cups coffee daily Smoking status: Never smoker Alcohol intake: former Substance use: never Substance use type: does not use Do You Feel Safe in your Home?: No Lack of Transportation: No Lack of Food: Never True Current Housing: I Have Housing Concerned About Future Housing: No Difficulty Paying Gas/Electric Bills: No Difficulty Paying for Meds: No Currently Unemployed: No Education: Decline to Answer Difficulty w/ Childcare or Family Care: No Living arrangements: with family Occupation/Education: retired Gender identity (if verbalized by the patient): Male Sexual Orientation (if Verbalized by the Patient): Straight or Heterosexual Spiritual care concerns: No Agree to blood products: Yes Meds Home Medications and Allergies Home Medications Medication Instructions Recorded Confirmed Type amlodipine 10 mg tablet 10 mg PO DAILY 10/31/20 06/30/24 History clonidine HCl 0.1 mg tablet 0.1 mg PO BID 10/31/20 06/30/24 History fluticasone propionate 50 2 spray intranasal DAILY chronic 09/16/23 06/17/24 Rx mcg/actuation nasal seasonal allergic rhinitis #18 mL spray,suspension (Flonase Allergy Relief) Allergies Allergy/AdvReac Type Severity Reaction Status Date / Time Penicillins Allergy Mild childhood Verified 06/30/24 08:56 reaction Vital Signs Vital Signs - 24 hr 06/30/24 08:58 Temperature 97.1 F L Pulse Rate 71 Respiratory Rate 18 Blood Pressure 160/77 H Pulse Oximetry 98 Oxygen Delivery Room Air Exam Const: General: cooperative and healthy appearing Resp: Effort & Inspection: normal respiratory effort and able to speak in complete sentences Auscultation: clear to auscultation bilaterally Cardio: Rate: regular rate Rhythm: regular rhythm GI: Inspection: normal to inspection GI Palp: No No hepatosplenomegaly present Auscultation: normal bowel sounds Rectal Exam: deferred Skin: General skin exam: normal color Psych: Appearance: grossly normal Mental Status: mental status grossly normal Assessment and Plan Assessment and plan (1) History of colonic polyps: Code(s): Z86.0100 - Personal history of colon polyps, unspecified Status: Acute Assessment and Plan: The patient is deemed a good candidate for the procedure. Consent signed. Will proceed.
[2024-06-30 10:30] VITALS: BP 157/99; PULSE 79; RESP 20; O2SAT 95
[2024-06-30 10:40] VITALS: BP 106/98; PULSE 78; RESP 20; O2SAT 100
[2024-06-30 10:50] VITALS: BP 153/83; PULSE 67; RESP 20; O2SAT 100
[2024-06-30 11:00] VITALS: BP 160/77
--- NOTE | 2024-06-30 11:02 | SUR.PHASEII ---
patient stated didn't take blood pressure medication this morning. Patient had no symptoms and was educated to resume medication when he arrives home. Patient was given physicians number if he has any concerns.
== END 2024-06-30 11:13 | disposition home or self-care (01) ==
PROVIDERS: PCP Physician Assistant Medical; Referring Provider Physician Assistant Medical; Visit Provider Internal Medicine Gastroenterology
PROC: 0DJD8ZZ Inspection of Lower Intestinal Tract, Via Natural or Artificial Opening Endoscopic (ICD-10-PCS; CPT 45378; principal; 2024-06-30 10:00)
DX: Z12.11 Encounter for screening for malignant neoplasm of colon (principal); D12.0 Benign neoplasm of cecum; D12.8 Benign neoplasm of rectum; K63.5 Polyp of colon; K57.30 Diverticulosis of large intestine without perforation or abscess without bleeding; E66.9 Obesity, unspecified; Z68.38 Body mass index [BMI] 38.0-38.9, adult; Z98.890 Other specified postprocedural states; Z85.828 Personal history of other malignant neoplasm of skin; Z82.49 Family history of ischemic heart disease and other diseases of the circulatory system
CPT/HCPCS: 45385; 88305; J2704; J7120